=== PATIENT | female | born 1975 | race Caucasian/White ===

== ENCOUNTER 2016-09-07 00:32 | Emergency (ER) | payer OTHER ==
[~2016-09-07 00:32] MED LIST: ASPIR 8181 MG PO; BUPRENORPHIN-N1 EACH SL; COLACE 100MG C100 MG PO; LIPITOR TAB 2020 MG PO; LISINOPRIL10 MG PO; LOPRESSOR 50 MG50 MG PO; NITROSTAT0.4 MG PO; SERTRALINE HCL50 MG PO
== END 2016-09-07 06:55 | disposition home or self-care (01) ==
LOC: ER1 00:32
DX: T78.40XA Allergy, unspecified, initial encounter (principal); R21 Rash and other nonspecific skin eruption; I25.10 Atherosclerotic heart disease of native coronary artery without angina pectoris; I25.2 Old myocardial infarction; I10 Essential (primary) hypertension; F17.210 Nicotine dependence, cigarettes, uncomplicated; Z95.5 Presence of coronary angioplasty implant and graft; Z79.899 Other long term (current) drug therapy
CPT/HCPCS: 96365; 96375; 99282; J1200; J2930

== ENCOUNTER → 2020-11-15 | Outpatient (CLI) | payer OTHER ==
[~2020-11-15] MED LIST changes: +AMLODIPINE BESYL5 MG PO; +IMDUR ER TAB 3030 MG PO; +LOPRESSOR 25 MG25 MG PO; +NORVASC 5 MG TAB5 MG PO; +PROTONIX40 MG PO
== END ==
LOC: HEART 5 10:27
DX: I25.10 Atherosclerotic heart disease of native coronary artery without angina pectoris (principal); I10 Essential (primary) hypertension; I08.1 Rheumatic disorders of both mitral and tricuspid valves; Z95.5 Presence of coronary angioplasty implant and graft
CPT/HCPCS: 93306

== ENCOUNTER → 2020-12-04 | Outpatient (CLI) | payer OTHER | LOC: HEART 5 08:02 | DX: I20.8 Other forms of angina pectoris (principal); R06.02 Shortness of breath | CPT/HCPCS: 78452; A9502; J2785 ==

== ENCOUNTER → 2020-12-08 | Outpatient (CLI) | payer OTHER | LOC: RAD 16:40 | DX: R06.02 Shortness of breath (principal) | CPT/HCPCS: 71045 ==

== ENCOUNTER → 2022-01-15 | Outpatient (CLI) | payer OTHER | LOC: NM 13:00 | DX: R10.11 Right upper quadrant pain (principal); R11.0 Nausea; R19.7 Diarrhea, unspecified | CPT/HCPCS: 78226; A9537 ==